=== PATIENT | female | born 1995 | race Two or more races ===

== ENCOUNTER 2019-07-07 16:09 | Inpatient (IN) | payer OTHER ==
[~2019-07-07] VITALS: Ht 154.9 cm; Wt 64.4 kg
[~2019-07-07 16:09] MED LIST: ROBITUSSIN15 MG/5 ML PO
[2019-07-07] MEDS ORDERED: OBSTETRIX DHA1 EACH PO (17:38)
== END 2019-07-09 09:41 | disposition home or self-care (01) | DRG 833 ==
LOC: LDR 16:09 → SURG-SUITE 16:09
PROVIDERS: ADMIT Obstetrics & Gynecology
PROC: 4A1HXCZ Monitoring of Products of Conception, Cardiac Rate, External Approach (ICD-10-PCS; principal; 2019-07-07)
DX: O47.03 False labor before 37 completed weeks of gestation, third trimester (principal); Z34.83 Encounter for supervision of other normal pregnancy, third trimester

== ENCOUNTER 2019-07-15 08:47 | Outpatient (CLI) | payer OTHER ==
[~2019-07-15 08:47] MED LIST changes: +OBSTETRIX DHA1 EACH PO
== END 2019-07-15 09:50 | disposition home or self-care (01) ==
LOC: NST 08:47
DX: Z34.83 Encounter for supervision of other normal pregnancy, third trimester (principal)

== ENCOUNTER 2019-08-04 12:45 | Inpatient (IN) | payer OTHER ==
[~2019-08-04] VITALS: Ht 180.3 cm; Wt 68.9 kg
== END 2019-08-11 11:37 | disposition home or self-care (01) | DRG 788 ==
LOC: O/R 12:45 → LDR 08-08 17:28 → SURG-SUITE 08-08 17:28 → O/R 08-15 12:45
PROVIDERS: ADMIT Obstetrics & Gynecology
PROC: 4A1HXCZ Monitoring of Products of Conception, Cardiac Rate, External Approach (ICD-10-PCS; 2019-08-08)
PROC: 10D00Z1 Extraction of Products of Conception, Low, Open Approach (ICD-10-PCS; principal; 2019-08-08 17:00)
DX: O82 Encounter for cesarean delivery without indication (principal); Z3A.37 37 weeks gestation of pregnancy; Z37.0 Single live birth